=== PATIENT | male | born 2000 | race Caucasian/White ===

== ENCOUNTER 2020-10-10 10:30 | Emergency (ER) | payer SELFPAY ==
[2020-10-10] MEDS ORDERED: HYDROcodone/Acetaminophen 5/325 mg Tablet ONE (10:46)
[2020-10-10] MEDS ORDERED: Ibuprofen 600 MG TAB ONE (10:46)
[2020-10-10] MEDS ORDERED: Boostrix 0.5 ML (Tdap) VIAL ONE (10:46)
== END 2020-10-10 12:20 | disposition home or self-care (01) ==
LOC: MADERS 10:30
DX: S82.841A Displaced bimalleolar fracture of right lower leg, initial encounter for closed fracture (principal); Z23 Encounter for immunization; J45.909 Unspecified asthma, uncomplicated; F17.290 Nicotine dependence, other tobacco product, uncomplicated; W14.XXXA Fall from tree, initial encounter
CPT/HCPCS: 27808; 90471; 90715